=== PATIENT | female | born 1955 | race Caucasian/White ===

== ENCOUNTER 2019-09-18 10:00 | Outpatient (CLI) | payer MEDICARE, BC | END 2019-09-18 10:01 | disposition home or self-care (01) | LOC: COV 10:00 | PROVIDERS: ATTEND Surgery | DX: Z01.812 Encounter for preprocedural laboratory examination (principal); D17.9 Benign lipomatous neoplasm, unspecified; Z20.828 Contact with and (suspected) exposure to other viral communicable diseases ==

== ENCOUNTER 2019-09-23 08:49 | Day surgery (SDC) | payer MEDICARE, BC ==
[~2019-09-23 08:49] MED LIST: ceFAZolin 3 GM in SODIUM CHLORIDE 0.9% 100ML 100 ML IV SCH
[2019-09-23] MEDS ORDERED: fentaNYL 100 MCG/2 ML VIAL IVP ONE (08:50)
[2019-09-23] MEDS ORDERED: MIDAZOLAM 2 MG/2 ML VIAL IVP ONE (08:50)
[2019-09-23] MEDS ORDERED: PROPOFOL 200 MG/20 ML VIAL IVP ONE (08:50)
[2019-09-23] MEDS ORDERED: LACTATED RINGERS 1,000 ML IV ONE (09:00)
[2019-09-23] MEDS ORDERED: LIDOCAINE 1%-EPI 1:100000 20 ML MDV ONE ×2 (09:45→10:59)
[2019-09-23] MEDS ORDERED: BUPIVACAINE 0.5% PF 30 ML VIAL ONE ×2 (09:45→10:59)
--- NOTE | 2019-09-23 10:12 | ANESTHESIA ---
Pre-Anesthesia VS, & Labs - Diagnosis right lateral thigh mass - Procedure excision right thigh mass Vital Signs: Temp Pulse Resp BP Pulse Ox 36.6 C 80 12 133/69 H 99 09/23/19 09:11 09/23/19 09:11 09/23/19 09:11 09/23/19 09:11 09/23/19 09:11 Height 5 ft 6 in Weight (kg) 135.4 kg - NPO >8 hours - Is Patient ?: No - Lab Results Current Lab Results: Laboratory Tests 09/23/19 09:30: POC Whole Bld Glucose 148 H Home Medications and Allergies Home Medications: Ambulatory Orders Acetaminophen [Tylenol Extra Strength] 1,000 mg PO Q8H PRN 09/13/19 Atorvastatin Calcium 40 mg PO DAILY 09/13/19 Calm Forte Sleep Aid 2 tab PO QPM PRN 09/13/19 Cyclobenzaprine [Flexeril] 10 mg PO TID PRN 09/13/19 Diclofenac Sodium 1 applic TP ONCE PRN 09/13/19 Esomeprazole Magnesium 40 mg PO BID 09/13/19 FLUoxetine [PROzac] 40 mg PO DAILY 09/13/19 Fexofenadine HCl [Loraine Allergy] 60 mg PO BID 09/13/19 Magnesium 250 mg PO QPM PRN 09/13/19 Meloxicam 15 mg PO DAILY 09/13/19 Montelukast [Singulair] 10 mg PO DAILY 09/13/19 Phentermine HCl 37.5 mg PO DAILY PRN 09/13/19 metFORMIN [Glucophage] 500 mg PO BIDWM 09/13/19 Active Medications Cefazolin Sodium 3 gm/ Sodium (Chloride) 100 mls @ 200 mls/hr IV ONCE RITESH Stop: 09/23/19 23:59 Acetaminophen [Tylenol Extra Strength] 1,000 mg PO Q8H PRN 09/13/19 Atorvastatin Calcium 40 mg PO DAILY 09/13/19 Calm Forte Sleep Aid 2 tab PO QPM PRN 09/13/19 Cyclobenzaprine [Flexeril] 10 mg PO TID PRN 09/13/19 Diclofenac Sodium 1 applic TP ONCE PRN 09/13/19 Esomeprazole Magnesium 40 mg PO BID 09/13/19 FLUoxetine [PROzac] 40 mg PO DAILY 09/13/19 Fexofenadine HCl [Loraine Allergy] 60 mg PO BID 09/13/19 Magnesium 250 mg PO QPM PRN 09/13/19 Meloxicam 15 mg PO DAILY 09/13/19 Montelukast [Singulair] 10 mg PO DAILY 09/13/19 Phentermine HCl 37.5 mg PO DAILY PRN 09/13/19 metFORMIN [Glucophage] 500 mg PO BIDWM 09/13/19 Allergies/Adverse Reactions: Allergies Allergy/AdvReac Type Severity Reaction Status Date / Time adhesive tape Allergy Rash Verified 09/23/19 09:20 Latex, Natural Rubber Allergy Unknown Verified 09/23/19 09:20 turkey Allergy Emesis Verified 09/13/19 15:20 Fish Containing Products AdvReac Emesis Verified 09/13/19 15:20 Penicillins AdvReac flushing Verified 09/13/19 15:20 Anes History & Medical History - Anesthetic History Anesthesia Complications: reports: No previous complications - Medical History Cardiovascular: reports: High cholesterol, Murmur Pulmonary: reports: Asthma, Sleep apnea, CPAP use Gastrointestinal: reports: GERD Urinary: reports: None Musculoskeletal: reports: Osteoarthritis Endocrine/Autoimmune: reports: Type 2 diabetes Skin: reports: Eczema - Surgical History General: Colonoscopy Orthopedic: Knee replacement Exam General: Alert Dental: WNL Mouth Opening: Can't Open Mouth Neck Mobility: Normal Mallampati classification: I Thyromental Distance: greater than 6 cm Respiratory: Lungs clear Cardiovascular: Regular rate, Normal S1, Normal S2 Plan Anesthesia Type: MAC Consent for Procedure(s) Verified and Reviewed: Yes Code Status: Attempt Resuscitation ASA classification: 3-Severe systemic disease Is this case an emergency?: No
[2019-09-23] MEDS ORDERED: LIDOCAINE 1%-EPI 1:100000 20 ML MDV SUBQ ONE ×2 (10:47)
[2019-09-23] MEDS ORDERED: BUPIVACAINE 0.5% PF 30 ML VIAL INFIL ONE ×2 (10:47)
--- NOTE | 2019-09-23 11:21 | OPERATIVE REPORT ---
Operative Report - General Procedure Date: 09/23/19 Planned Procedure: Excision of right lateral thigh mass Pre-Op Diagnosis: Enlarging and painful right lateral thigh mass Procedure Performed: Excision of right lateral thigh mass with closure and drain placement Post Op Diagnosis: Enlarging and painful right lateral thigh mass - Procedure Note Primary Surgeon: Geronimo Anesthesia Provider: KULWANT Patterson Anesthesia Technique: Local, MAC Pathology: Mass to pathology in formalin Estimated Blood Loss (mL): 15 Drain/Tube Type: Paulino drain (15 Yakut) Findings: Multilobulated and poorly encapsulated mass Complications: None apparent - Other Other Information/Narrative: After obtaining informed consent, the patient is brought to the operating room and placed in the left lateral decubitus position on the operating table. Following successful induction of sedation with monitored anesthesia care, the right thigh was prepped and draped in the standard surgical fashion. A time out was held per scope protocol. All elements of the surgical safety checklist were followed before, during, and after the procedure. Following infiltration with local anesthetic to create a field block, an incision was created in the middle of the mass and carried down through the skin to reach the subcutaneous tissue. The edges of the mass were defined and it was determined to be 18 x 10 cm in greatest dimension. The mass itself extended from the subcutaneous fat to the overlying fascia of the muscle below. It was dissected sharply and passed from the table. The cavity was checked for hemostasis. It was irrigated with warm water and checked once again. We were satisfied that hemostasis have been obtained, a 15 Y[place] Paulino drain was placed in the superior portion of the thigh above the wound and curled within the cavity. This was sewn into place with a nylon suture. The wound itself was closed in 2 layers with Vicryl Monocryl suture. All sponge, needle, and instrument counts were correct at the conclusion of the case. The patient was allowed awaken from anesthesia without difficulty and taken to the postanesthesia care unit in good condition.
[2019-09-23 12:04] VITALS: BP 156/83
--- NOTE | 2019-09-23 12:28 | ANESTHESIA POST OP EVALUATION ---
Anesthesia Post Eval - Post Anesthesia Eval Vitals: Last Vital Signs Temp 36.8 C 09/23/19 12:02 Pulse 82 09/23/19 12:02 Resp 16 09/23/19 12:02 BP 156/83 H 09/23/19 12:02 Pulse Ox 97 09/23/19 12:02 CV Function Including HR & BP: positive: Stable Pain Control: positive: Satisfactory Nausea & Vomiting: positive: Negative Mental Status: positive: Baseline Respiratory Status: Airway Patent Hydration Status: Satisfactory Anesthesia Complications: positive: None
== END 2019-09-23 08:50 | disposition home or self-care (01) ==
LOC: SDS 08:49
PROVIDERS: ATTEND Surgery
PROC: 0JBL0ZZ Excision of Right Upper Leg Subcutaneous Tissue and Fascia, Open Approach (ICD-10-PCS; principal; 2019-09-23 10:30)
DX: D17.23 Benign lipomatous neoplasm of skin and subcutaneous tissue of right leg (principal); G47.30 Sleep apnea, unspecified; E11.9 Type 2 diabetes mellitus without complications; E66.9 Obesity, unspecified; Z68.42 Body mass index [BMI] 45.0-49.9, adult; Z79.84 Long term (current) use of oral hypoglycemic drugs
CPT/HCPCS: 11406; 12032; J7120